=== PATIENT | male | born 1965 | race Caucasian/White ===

== ENCOUNTER 2019-10-29 22:30 | Inpatient (IN) | payer OTHER ==
[2019-10-29 23:47] VITALS: BMI 31.1
--- NOTE | 2019-10-30 03:20 | HP ---
CIWA Score Nausea/Vomitin-No Nausea/No Vomiting Muscle Tremors: 4-Moderate,w/Arms Extend Anxiety: 3 Agitation: 1-Slight > Activity Paroxysmal Sweats: 3 Orientation: 1-Uncertain about Date Tacttile Disturbances: 0-None Auditory Disturbances: 0-None Visual Disturbances: 0-None Headache: 0-None Present CIWA-Ar Total Score: 12 - Admission Criteria OASAS Guidelines: Admission for Medically Managed Detox: Requires at least one of the followin. CIWA greater than 12 2. Seizures within the past 24 hours 3. Delirium tremens within the past 24 hours 4. Hallucinations within the past 24 hours 5. Acute intervention needed for co occurring medical disorder 6. Acute intervention needed for co occurring psychiatric disorder 7. Severe withdrawal that cannot be handled at a lower level of care (continued vomiting, continued diarrhea, abnormal vital signs) requiring intravenous medication and/or fluids 8. Patient presents the following: CIWA greater than 12 Admission Criteria Met: Admission criteria met Admission ROS S - HPI Chief Complaint: States wants to get sober and stop drinking. Allergies/Adverse Reactions: Allergies Allergy/AdvReac Type Severity Reaction Status Date / Time No Known Allergies Allergy Verified 10/29/19 23:35 History of Present Illness: 54 yo presents from [facility] w/ dx alcohol alcohol intoxication with withdrawal symptoms present. Utox: Neg KIMBER:0 BASED ON PATIENT ASSESSMENT HE IS EXPECTED TO STAY LONGER THAN 2 NIGHTS. Denies seizures or overdose. Hx: Blackouts - last time approx 6 days ago. Alcohol use began at age 16. Currently drinks 4x/wk. 1 large bottle rum and 24 - 10 beers. States when does drink gets anxious, nausea and shaky. Denies drug use. Denies nicotine. PMHx: HTN; MHHx: Depression. Denies thoughts of harming self or others. SHx: Domiciled. Unemployed. Denies legal issues. Search Terms: [place] Warren, 1965 Search Date: 10/30/2019 03:10:54 AM The Drug Utilization Report below displays all of the controlled substance prescriptions, if any, that your patient has filled in the last twelve months. The information displayed on this report is compiled from pharmacy submissions to the Department, and accurately reflects the information as submitted by the pharmacies. This report was requested by: Denise Baumann | Reference #: [id number] There are no results for the search terms that you entered. Exam Limitations: No Limitations - Ebola screening Have you traveled outside of the country in the last 21 days: No Have you had contact with anyone from an Ebola affected area: No Have you been sick,other than usual withdrawal symptoms: No Do you have a fever: No - Review of Systems Constitutional: Diaphoresis, Changes in sleep (Difficulty falling asleep) EENT: reports: No Symptoms Reported Respiratory: reports: SOB with Exertion (Whenclimbing stairs.) Cardiac: reports: No Symptoms Reported GI: reports: Indigestion (Acid reflux) : reports: No Symptoms Reported Musculoskeletal: reports: Joint Pain ((R) shoulder injury 3 years ago. Sometimes pain. Now "0") Integumentary: reports: No Symptoms Reported Neuro: reports: Tremors Endocrine: reports: Increased Thirst Hematology: reports: No Symptoms Reported Psychiatric: reports: Anxious, Depressed Patient History - PPD History Previous Implant?: Yes Documented Results: Negative w/o proof Implanted On Prior R Admission?: No PPD to be Administered?: Yes - Smoking Cessation Smoking history: Never smoked - Substance & Tx. History Hx Alcohol Use: Yes Hx Substance Use: No Substance Use Type: Alcohol Hx Substance Use Treatment: Yes (detox, rehab, AA) - Substances abused Alcohol Substance route: Oral Frequency: Daily Amount used: 3 packs of beer/ 1 bottle of vodka. Age of first use: 16 Date of last use: 10/28/19 Admission Physical Exam [facility] - Vital Signs Vital Signs: Vital Signs - 24 hr 10/29/19 23:35 Temperature 97.1 F L Pulse Rate 86 Respiratory 20 Rate Blood Pressure 148/98 - Physical General Appearance: Yes: Nourished, Mild Distress, Tremorous (Gross tremors), Sweating, Anxious HEENTM: Yes: EOMI, Hearing grossly Normal, Normal Voice, Pharynx Normal ( Thickened saliva), Other (Sclera clear/anicteric.) Respiratory: Yes: Lungs Clear, Normal Breath Sounds, No Respiratory Distress Neck: Yes: No masses,lesions,Nodules, Supple Breast: Yes: Breast Exam Deferred Cardiology: Yes: Regular Rhythm Abdominal: Yes: Soft, Increased Bowel Sounds, Distended (Abd measured and is 41.5"), Tenderness ((+) GENERALIZED ABD TENDERNESS. NO REBOUND. NO GUARDING.) Genitourinary: Yes: Within Normal Limits Back: Yes: Normal Inspection Musculoskeletal: Yes: full range of Motion, Gait Steady Extremities: Yes: Normal Capillary Refill, Tremors, Other (BLE engorged blood vessesl. peripheral pulses +) Neurological: Yes: Fully Oriented, Alert, Motor Strength 5/5 Integumentary: Yes: Normal Color, Warm, Other (Decreased skin turgor) Lymphatic: Yes: Within Normal Limits - Diagnostic (1) Alcohol dependence with withdrawal, uncomplicated Current Visit: Yes Status: Acute (2) Distended abdomen Current Visit: Yes Status: Chronic Comment: Soft, with generalized tenderness upon palpation. Measures 41.5" or 104 cm (3) Asymptomatic varicose veins of bilateral lower extremities Current Visit: Yes Status: Chronic Comment: Pedal pulses +; (4) Dehydration symptoms Current Visit: Yes Status: Acute Cleared for Admission S - Detox or Rehab [facility] Level of Care: Medically Managed Detox Regimen/Protocol: Librium Claeared for Rehab Admission: No Breathalyzer - Breathalyzer Breathalyzer: 0 Urine Drug Screen - Test Device Lot number: [id number] Expiration date: 08/22/21 - Control Is test valid?: Yes - Results Drug screen NEGATIVE: Yes Inpatient Rehab Admission - Rehab Decision to Admit Inpatient rehab admission?: No
[2019-10-30] MEDS ORDERED: MELATONIN 5 MG TABLETS PO PRN (05:03)
[2019-10-30] MEDS ORDERED: MENTHOL/PHENOL 1 EACH UD MM PRN (05:03)
[2019-10-30] MEDS ORDERED: MAG HYDROX/AL HYDROX/SIMETH 30 ML UNIT-DOSE CUP PO PRN (05:03)
[2019-10-30] MEDS ORDERED: ACETAMINOPHEN 325 MG TABLET (FP) PO PRN ×2 (05:03)
[2019-10-30] MEDS ORDERED: MAGNESIUM HYDROX 2400MG/30ML ORAL SUSPENSION 30 ML CUP PO PRN (05:03)
[2019-10-30] MEDS ORDERED: BISMUTH SUBSALICYLATE 524 MG/30 ML UD PO PRN (05:03)
[2019-10-30] MEDS ORDERED: MAGNESIUM CITRATE 300 ML BOTTLE PO PRN (05:03)
[2019-10-30] MEDS ORDERED: chlordiazePOXIDE HCL 25 MG CAPSULE PO PRN (05:03)
[2019-10-30] MEDS ORDERED: IBUPROFEN 400 MG TABLET (FP) PO PRN (05:03)
[2019-10-30] MEDS: chlordiazePOXIDE HCL 25 MG CAPSULE PO SCH ×4 (06:48→22:20)
[2019-10-30] MEDS: PRENATAL VITAMINS W/ FOLIC ACID TABLET (FP) PO SCH (10:22)
[2019-10-30 12:09] LABS: HEMATOCRIT 41.7 % (35.4-49); HEMOGLOBIN 13.4 GM/dL (11.7-16.9); MCH 26.8 pg (25.7-33.7); MCHC 32.2 g/dl (32.0-35.9); MEAN CELL VOLUME 83.3 fl (80-96); MEAN PLT VOLUME 8.5 fl (7.5-11.1); PLATELET COUNT 431 K/MM3 (134-434); RDW 14.7 % (11.9-15.9); WHITE BLOOD COUNT 11.4 K/mm3 (4.0-10.0)
[2019-10-30 12:28] LABS: ALBUMIN 3.8 g/dl (3.4-5.0); BILIRUBIN,TOTAL 0.6 mg/dL (0.2-1); BLOOD UREA NITROGEN 16.1 mg/dL (7-18); CREATININE 0.9 mg/dL (0.55-1.3); POTASSIUM 4.3 mmol/L (3.5-5.1); TOT PROT 7.8 g/dl (6.4-8.2)
--- NOTE | 2019-10-30 13:07 | PN ---
[facility] Progress Note Note: Patient admitted to detox today for alcohol withdrawal. Resting in bed. States " I feel tired and just want to sleep". In no acute distress. Vital Signs Temperature 97.3 F L 10/30/19 09:42 Pulse Rate 74 10/30/19 09:42 Respiratory Rate 18 10/30/19 09:42 Blood Pressure 142/83 10/30/19 09:42 O2 Sat by Pulse Oximetry (%) Laboratory Tests 10/30/19 10/30/19 07:20 07:20 WBC 11.4 H RBC 5.00 Hgb 13.4 Hct 41.7 MCV 83.3 MCH 26.8 MCHC 32.2 RDW 14.7 Plt Count 431 MPV 8.5 Sodium 138 Potassium 4.3 Chloride 104 Carbon Dioxide 25 Anion Gap 8 BUN 16.1 Creatinine 0.9 Est GFR (CKD-EPI)AfAm 112.62 Est GFR (CKD-EPI)NonAf 97.17 Random Glucose 82 Calcium 9.0 Total Bilirubin 0.6 AST 27 ALT 34 Alkaline Phosphatase 120 H Total Protein 7.8 Albumin 3.8
[2019-10-30] MEDS: cloNIDine HCL 0.1 MG TABLET PO PRN (17:53)
[2019-10-30] MEDS: THIAMINE HCL 100 MG TABLET (FP) PO SCH (22:20)
[2019-10-31] MEDS: chlordiazePOXIDE HCL 25 MG CAPSULE PO SCH ×4 (05:53→22:14)
[2019-10-31] MEDS: cloNIDine HCL 0.1 MG TABLET PO PRN (10:02)
[2019-10-31] MEDS: PRENATAL VITAMINS W/ FOLIC ACID TABLET (FP) PO SCH (10:02)
--- NOTE | 2019-10-31 10:57 | PN ---
[facility] CIWA - CIWA Score Nausea/Vomitin-No Nausea/No Vomiting Muscle Tremors: 3 Anxiety: 2 Agitation: 3 Paroxysmal Sweats: 2 Orientation: 0-Oriented Tacttile Disturbances: 0-None Auditory Disturbances: 0-None Visual Disturbances: 0-None Headache: 0-None Present CIWA-Ar Total Score: 10 S Progress Note (SOAP) Subjective: sweats low back pain interrupted sleep agitation Objective: 10/31/19 10:54 Vital Signs Temperature 97.2 F L 10/31/19 09:31 Pulse Rate 83 10/31/19 09:33 Respiratory Rate 18 10/31/19 09:33 Blood Pressure 146/115 H 10/31/19 09:33 O2 Sat by Pulse Oximetry (%) Laboratory Tests 10/30/19 10/30/19 07:20 07:20 WBC 11.4 H RBC 5.00 Hgb 13.4 Hct 41.7 MCV 83.3 MCH 26.8 MCHC 32.2 RDW 14.7 Plt Count 431 MPV 8.5 Sodium 138 Potassium 4.3 Chloride 104 Carbon Dioxide 25 Anion Gap 8 BUN 16.1 Creatinine 0.9 Est GFR (CKD-EPI)AfAm 112.62 Est GFR (CKD-EPI)NonAf 97.17 Random Glucose 82 Calcium 9.0 Total Bilirubin 0.6 AST 27 ALT 34 Alkaline Phosphatase 120 H Total Protein 7.8 Albumin 3.8 labs noted discussed with pt what medication he is on for his hypertension; pt states its been months since he has taken medication and cannot remember the name. pt was also asked what is the name of his pharmacy but he cannot remember name either. pt was told that he will be placed on a low dose hypertensive medication to control his high blood pressure and he will need to see his PCP for follow up after detox; pt in agreement. aaox3 ambulating no acute distress Assessment: 10/31/19 10:56 withdrawals Plan: continue detox start lisinopril 10mg daily monitor BP
[2019-10-31] MEDS ORDERED: LISINOPRIL 5 MG TABLET (FP) PO ONE (11:01)
[2019-10-31] MEDS: LIDOCAINE 5% TOPICAL PATCH TP SCH (12:57)
[2019-10-31] MEDS: THIAMINE HCL 100 MG TABLET (FP) PO SCH (21:16)
[2019-10-31] MEDS: LIDOCAINE PATCH REMOVAL MC SCH (22:14)
[2019-11-01] MEDS ORDERED: chlordiazePOXIDE HCL 10 MG CAPSULE PO PRN
[2019-11-01] MEDS: chlordiazePOXIDE HCL 10 MG CAPSULE PO SCH ×4 (05:11→22:07)
[2019-11-01 09:45] LABS: PH,URINE 6.5 (5.0-8.0); URINE APPEARANCE CLEAR; URINE BILIRUBIN NEGATIVE (NEGATIVE); URINE COLOR YELLOW; URINE GLUCOSE (UA) NEGATIVE (NEGATIVE); URINE KETONE NEGATIVE (NEGATIVE); URINE LEUK ESTERASE NEGATIVE (NEGATIVE); URINE NITRITE NEGATIVE (NEGATIVE); URINE PROTEIN NEGATIVE (NEGATIVE)
[2019-11-01] MEDS ORDERED: LISINOPRIL 5 MG TABLET (FP) PO SCH (10:00)
[2019-11-01] MEDS: PRENATAL VITAMINS W/ FOLIC ACID TABLET (FP) PO SCH (10:21)
[2019-11-01] MEDS: LIDOCAINE 5% TOPICAL PATCH TP SCH (10:23)
--- NOTE | 2019-11-01 11:06 | PN ---
S CIWA - CIWA Score Nausea/Vomitin-No Nausea/No Vomiting Muscle Tremors: 2 Anxiety: 2 Agitation: 2 Paroxysmal Sweats: 2 Orientation: 0-Oriented Tacttile Disturbances: 0-None Auditory Disturbances: 0-None Visual Disturbances: 0-None Headache: 0-None Present CIWA-Ar Total Score: 8 [facility] Progress Note (SOAP) Subjective: sweats back pain Objective: 11/01/19 11:05 Vital Signs Temperature 97.2 F L 11/01/19 09:19 Pulse Rate 74 11/01/19 09:19 Respiratory Rate 16 11/01/19 09:19 Blood Pressure 147/97 11/01/19 09:19 O2 Sat by Pulse Oximetry (%) Laboratory Tests 10/30/19 10/30/19 10/31/19 07:20 07:20 07:30 WBC 11.4 H RBC 5.00 Hgb 13.4 Hct 41.7 MCV 83.3 MCH 26.8 MCHC 32.2 RDW 14.7 Plt Count 431 MPV 8.5 Sodium 138 Potassium 4.3 Chloride 104 Carbon Dioxide 25 Anion Gap 8 BUN 16.1 Creatinine 0.9 Est GFR (CKD-EPI)AfAm 112.62 Est GFR (CKD-EPI)NonAf 97.17 Random Glucose 82 Calcium 9.0 Total Bilirubin 0.6 AST 27 ALT 34 Alkaline Phosphatase 120 H Total Protein 7.8 Albumin 3.8 Urine Color Urine Appearance Urine pH Ur Specific [place] Urine Protein Urine Glucose (UA) Urine Ketones Urine Blood Urine Nitrite Urine Bilirubin Urine Urobilinogen Ur Leukocyte Esterase RPR Titer Nonreactive 11/01/19 07:30 WBC RBC Hgb Hct MCV MCH MCHC RDW Plt Count MPV Sodium Potassium Chloride Carbon Dioxide Anion Gap BUN Creatinine Est GFR (CKD-EPI)AfAm Est GFR (CKD-EPI)NonAf Random Glucose Calcium Total Bilirubin AST ALT Alkaline Phosphatase Total Protein Albumin Urine Color Yellow Urine Appearance Clear Urine pH 6.5 Ur Specific [place] 1.023 Urine Protein Negative Urine Glucose (UA) Negative Urine Ketones Negative Urine Blood Negative Urine Nitrite Negative Urine Bilirubin Negative Urine Urobilinogen 1.0 Ur Leukocyte Esterase Negative RPR Titer aaox3 ambulating no acute distress Assessment: 11/01/19 11:06 withdrawals Plan: continue detox lidocaine patch motrin prn
[2019-11-01] MEDS ORDERED: LISINOPRIL 5 MG TABLET (FP) PO ONE (13:53)
[2019-11-01] MEDS ORDERED: amLODIPine BESYLATE 10 MG TABLET (FP) PO ONE (13:53)
--- NOTE | 2019-11-01 13:56 | PN ---
[facility] Progress Note Note: RN reports pt last BP 150/102, only has ordered 5mg of lisinopril. pt was ordered 5mg of lisinopril x one, norvasc 10mg and HTCZ 12.5mg bid. will re-evaluate BP status.
[2019-11-01] MEDS: HYDROCHLOROTHIAZIDE 12.5 MG CAPSULE (FP) PO SCH ×2 (14:02→22:07)
--- NOTE | 2019-11-01 14:54 | EKG ---
Test Reason : Blood Pressure : / mmHG Vent. Rate : 068 BPM Atrial Rate : 068 BPM P-R Int : 148 ms QRS Dur : 088 ms QT Int : 400 ms P-R-T Axes : 030 021 046 degrees QTc Int : 425 ms NORMAL SINUS RHYTHM NORMAL ECG NO PREVIOUS ECGS AVAILABLE Confirmed by Guillermo Cee MD ([id number]) on 11/01/2019 2:54:14 PM Referred By: SRIKANTH CALDERON NP Confirmed By:Guillermo Cee MD
--- NOTE | 2019-11-01 15:27 | PN ---
[facility] Progress Note Note: pt was unable to tell us name of pharmacy there fore cannot confirm any HTN medication. pt was ordered HCTZ, norvasc, lisiopril and now his BP 134/75. pt in asymptomatic and comfortable. .
--- NOTE | 2019-11-01 15:46 | PN ---
[facility] Progress Note Note: pt abdomen assessed +BS all four quadrants. abdomen soft non distended. pt states had a BM this am, normal stool color and consistency. pt denies any pain/discomfort.
[2019-11-01] MEDS: THIAMINE HCL 100 MG TABLET (FP) PO SCH (22:07)
[2019-11-01] MEDS: LIDOCAINE PATCH REMOVAL MC SCH (22:09)
[2019-11-02] MEDS ORDERED: chlordiazePOXIDE HCL 10 MG CAPSULE PO SCH (05:00)
[2019-11-02 07:00] VITALS: BP 134/76; PULSE 78; TEMP 97.7
--- NOTE | 2019-11-02 08:51 | DS ---
[facility] Detox Discharge Summary Admission Date: 10/30/19 Discharge Date: 11/02/19 - History Present History: Alcohol Dependence - Physical Exam Results Vital Signs: Vital Signs Temperature 97.7 F 11/02/19 06:59 Pulse Rate 78 11/02/19 06:59 Respiratory Rate 11/02/19 06:59 Blood Pressure 134/76 11/02/19 06:59 O2 Sat by Pulse Oximetry (%) Pertinent Admission Physical Exam Findings: Vital Signs Temperature 97.7 F 11/02/19 06:59 Pulse Rate 78 11/02/19 06:59 Respiratory Rate 11/02/19 06:59 Blood Pressure 134/76 11/02/19 06:59 O2 Sat by Pulse Oximetry (%) Laboratory Tests 10/30/19 10/30/19 10/31/19 07:20 07:20 07:30 WBC 11.4 H RBC 5.00 Hgb 13.4 Hct 41.7 MCV 83.3 MCH 26.8 MCHC 32.2 RDW 14.7 Plt Count 431 MPV 8.5 Sodium 138 Potassium 4.3 Chloride 104 Carbon Dioxide 25 Anion Gap 8 BUN 16.1 Creatinine 0.9 Est GFR (CKD-EPI)AfAm 112.62 Est GFR (CKD-EPI)NonAf 97.17 Random Glucose 82 Calcium 9.0 Total Bilirubin 0.6 AST 27 ALT 34 Alkaline Phosphatase 120 H Total Protein 7.8 Albumin 3.8 Urine Color Urine Appearance Urine pH Ur Specific [place] Urine Protein Urine Glucose (UA) Urine Ketones Urine Blood Urine Nitrite Urine Bilirubin Urine Urobilinogen Ur Leukocyte Esterase RPR Titer Nonreactive 11/01/19 07:30 WBC RBC Hgb Hct MCV MCH MCHC RDW Plt Count MPV Sodium Potassium Chloride Carbon Dioxide Anion Gap BUN Creatinine Est GFR (CKD-EPI)AfAm Est GFR (CKD-EPI)NonAf Random Glucose Calcium Total Bilirubin AST ALT Alkaline Phosphatase Total Protein Albumin Urine Color Yellow Urine Appearance Clear Urine pH 6.5 Ur Specific [place] 1.023 Urine Protein Negative Urine Glucose (UA) Negative Urine Ketones Negative Urine Blood Negative Urine Nitrite Negative Urine Bilirubin Negative Urine Urobilinogen 1.0 Ur Leukocyte Esterase Negative RPR Titer aaox3 ambulating +BS all four quadrants; no abdominal distention noted - Treatment Hospital Course: Detox Protocol Followed, Detoxed Safely, Responded well, Discharged Condition Good, Rehab Referral Accepted Patient has Accepted a Rehab Referral to: pt declined;going home - Medication Discharge Medications: Ambulatory Orders NK [No Known Home Medication] 10/29/19 - Diagnosis (1) Alcohol dependence with withdrawal, uncomplicated Current Visit: Yes Status: Chronic (2) Asymptomatic varicose veins of bilateral lower extremities Current Visit: Yes Status: Chronic (3) Distended abdomen Current Visit: No Status: Resolved - AMA Did Patient Leave Against Medical Advice: No
[2019-11-03] MEDS ORDERED: chlordiazePOXIDE HCL 10 MG CAPSULE PO ONE (05:00)
== END 2019-11-02 09:25 | disposition home or self-care (01) | DRG 775 ==
LOC: YASAS 22:30 → Y6N 10-30 03:41
PROVIDERS: ADMIT Allergy & Immunology; ATTEND Allergy & Immunology
PROC: HZ2ZZZZ Detoxification Services for Substance Abuse Treatment (ICD-10-PCS; principal; 2019-10-30)
DX: F10.230 Alcohol dependence with withdrawal, uncomplicated (principal); I10 Essential (primary) hypertension; I83.93 Asymptomatic varicose veins of bilateral lower extremities; E86.0 Dehydration; R14.0 Abdominal distension (gaseous); Z56.0 Unemployment, unspecified
CPT/HCPCS: 36415; 80053; 81003; 85027; 86593; 93005; 93010; J0735